=== PATIENT | male | born 1975 | race Caucasian/White ===

== ENCOUNTER 2016-05-19 16:21 | Outpatient (CLI) | payer BC | END 2016-05-19 18:58 | disposition home or self-care (01) | LOC: SRD 16:21 | PROVIDERS: ATTEND Internal Medicine | DX: A15.9 Respiratory tuberculosis unspecified (principal) | CPT/HCPCS: 71020-TC ==

== ENCOUNTER 2018-05-30 11:36 | Outpatient (CLI) | payer BC | END 2018-05-30 21:09 | disposition home or self-care (01) | LOC: SRD 11:36 | PROVIDERS: ATTEND Internal Medicine | DX: R76.11 Nonspecific reaction to tuberculin skin test without active tuberculosis (principal) | CPT/HCPCS: 71046-TC ==